=== PATIENT | male | born 1975 | race Caucasian/White ===

== ENCOUNTER 2017-01-01 21:02 | Inpatient (IN) | payer BC ==
--- NOTE | ~2017-01-01 | US85 ---
[facility] A Service of [facility] RADIOLOGY TEXT RESULTS PATIENT: LEE DOMINGUEZ LOCATION: [facility] 310-01 : 74 UNIT #: [id number] AGE: [address]: Steve Copeland MD SEX: M ORDER DR: [id number] [facility] [address] [facility]. [place], [place] [address] [id number] I MR#: [id number] Acc #: [id number] NAME: LEE DOMINGUEZ : 1975 SEX: M STUDY DATE/TIME: 01/01/2017 21:20 UNIT: CEDOF ROOM: 75469 STUDY DESCRIPTION: LE Veins Unilat or Ltd Stdy Attending Physician: Steve Copeland M.D. Ordering Physician: Saravanan Ny D.O. Primary Care Physician: Primary Care Physician No MEDICAL IMAGING REPORT This report is preliminary unless electronic signature is present EXAM Unilateral left lower extremity venous Doppler, 01/01/2017 HISTORY Left leg pain for 3 days. PROCEDURE Corey-scale imaging, color-Doppler flow imaging and Doppler waveform analysis. FINDINGS There is occlusive thrombus in the left superficial femoral vein. There is normal color flow and compressibility and respiratory phasicity and/or augmentation in the common and deep femoral and popliteal veins as well as the below-knee tibial and peroneal veins. The superficial saphenous vein is normal as well. IMPRESSION Positive for acute occlusive deep venous thrombus in the left superficial femoral vein, otherwise negative. Dictated by... Flavio Case M.D. THIS IS AN ELECTRONICALLY VERIFIED REPORT Flavio Case M.D. at 01/03/2017 9:44 AM NADIYA/ming TD: 01/02/2017 01:21 JOB #: [id number] [facility] A Service of [facility] RADIOLOGY TEXT RESULTS PATIENT: LEE DOMINGUEZ LOCATION: [facility] 310-01 : 74 UNIT #: [id number] AGE: [address]: Steve Copeland MD SEX: M ORDER DR: MEDICAL IMAGING REPORT Page 1 of 1 COPY
--- NOTE | ~2017-01-01 | EKG ---
PATIENT: LEE DOMINGUEZ UNIT #: [id number] Ventricular Rate: 103 BPM Atrial Rate: 103 BPM P-R Interval: 130 ms QRS Duration: 80 ms Q-T Interval: 346 ms QTC Calculation(Bezet): 453 ms P [place]: 73 degrees Calculated R [place]: 47 degrees Calculated T [place]: 67 degrees Diagnosis Line: Sinus tachycardia Diagnosis Line: Otherwise normal ECG Diagnosis Line: No previous ECGs available Diagnosis Line: Confirmed by HOWIE MACDONALD MD ([id number]) on 01/01/2017 Diagnosis Line: 10:36:33 PM INTERPRETING MD: RENAE BETANCOURT
--- NOTE | ~2017-01-01 | CR72 ---
[facility] A Service of [facility] RADIOLOGY TEXT RESULTS PATIENT: LEE DOMINGUEZ LOCATION: [facility] : 73 UNIT #: [id number] AGE: [address]: Steve Copeland MD SEX: M ORDER DR: [id number] [facility] [address] [facility]. [place], [place] [address] [id number] I MR#: [id number] Acc #: [id number] NAME: LEE DOMINGUEZ : 1975 SEX: M STUDY DATE/TIME: 01/01/2017 21:42 UNIT: CEDOF ROOM: 07701 STUDY DESCRIPTION: CR Chest Single View Portable Attending Physician: Steve Copeland M.D. Ordering Physician: Saravanan Ny D.O. Primary Care Physician: Primary Care Physician No MEDICAL IMAGING REPORT This report is preliminary unless electronic signature is present EXAM AP portable chest, 01/01/2017 HISTORY 41-year-old male in the ED complaining of chest pain and new onset left leg pain beginning about 4 days ago. The patient is being assessed for DVT and possible PE. TECHNIQUE AP portable upright chest x-ray. TECHNIQUE AP portable upright chest x-ray. FINDINGS Linear scarring or atelectasis left posterior lung base. Lungs are otherwise clear. Heart size and pulmonary vascularity are normal. No visible pulmonary infiltrate or pleural effusion. IMPRESSION Mild linear atelectasis or scarring left lung base. The chest is otherwise negative. Dictated by... Rui Ansari M.D. THIS IS AN ELECTRONICALLY VERIFIED REPORT Rui Ansari M.D. at 01/02/2017 6:00 AM ELEUTERIO/ming TD: 01/02/2017 02:37 [facility] A Service of [facility] RADIOLOGY TEXT RESULTS PATIENT: LEE DOMINGUEZ LOCATION: [facility] : 73 UNIT #: [id number] AGE: [address]: Steve Copeland MD SEX: M ORDER DR: JOB #: [id number] MEDICAL IMAGING REPORT Page 1 of 1 COPY
--- NOTE | ~2017-01-01 | HP ---
Unit #: [id number] #: [id number] Patient: LEE DOMINGUEZ [id number] [address] [place], [place] [address] [id number] MR#: [id number] NAME: LEE DOMINGUEZ. ROOM: 310 Age: 42 Sex: M Admission Date: 01/01/2017 : 1975 Attending Physician: Steve Copeland M.D. Primary Care Physician: No Primary Care Physician HISTORY AND PHYSICAL CHIEF COMPLAINT Lower extremity swelling and shortness of breath. HISTORY OF PRESENT ILLNESS A 42-year-old male with past medical history significant for likely COPD, excessive smoker, who presents with a complaint of left foot pain and was found to have pulmonary embolism and DVT. I am seeing the patient at bedside. He had recent history of travel to [place]. Denies any chest pain, hemoptysis. PHYSICAL EXAMINATION VITAL SIGNS: Temperature 98, pulse 87, respirations 12, blood pressure 130/70. NEUROLOGIC: Awake, alert, oriented. No neuro deficit. HEENT: PERRLA plus 1. NECK: Supple. No JVD. CHEST: Bilateral air entry. Bilateral mild rhonchi. GASTROINTESTINAL: Nontender, soft. Bowel sounds positive. EXTREMITIES: No edema. SKIN: No rash. No ulcer. LYMPHATIC: No lymphadenopathy. DIAGNOSTIC STUDIES Labs and imaging have been reviewed. IMAGING: CT angio showed possible pulmonary embolus. Ultrasound of the leg was positive for DVT. FAMILY HISTORY Negative for blood clots. ASSESSMENT 1. Deep venous thrombosis. 2. Pulmonary embolism. 3. Likely chronic obstructive pulmonary disease. PLAN Plan is to admit the patient. Start anticoagulation. Consult oncology/hematology and control pain. Continue bronchodilator. Patient will be closely monitored. Please see orders for detailed plan. Unit #: [id number] #: [id number] Patient: LEE DOMINGUEZ Dictated by Carie Macario TD: 01/04/2017 17:14 JOB #: [id number] HISTORY AND PHYSICAL Page 1 of 1 X Steve Copeland MD X HISTORY AND PHYSICAL
--- NOTE | ~2017-01-01 | CO ---
Unit #: [id number] #: [id number] Patient: LEE DOMINGUEZ [id number] [address] [place], [place] [address] [id number] I MR#: [id number] NAME: LEE DOMINGUEZ. ROOM: 310 Age: 42 Sex: M Admission Date: 01/01/2017 : 1975 Attending Physician: Steve Copeland M.D. Primary Care Physician: No Primary Care Physician Consultation Date: 01/02/2017 CONSULTATION REPORT REASON FOR CONSULT Left DVT, PE; please evaluate. HISTORY OF PRESENT ILLNESS This is a 42-year-old gentleman who leads a very sedentary life. Takes care of his children at home, so he spends a lot of time watching TV. Had no reason to develop a clot, so it was spontaneous. Left-sided charley horse-type of leg pain, which got worse and started swelling at the thigh. Presented when he was found to have a left-sided DVT plus a low volume pulmonary embolus. We were requested to evaluate. Today on questioning, he states that he has done nothing unusual. The only place he drove was 4 hours going to [place], but that was a week or 2 ago, and the clot is on the left leg and not on right. Currently he has no chest pain, hemoptysis. PAST MEDICAL HISTORY Past history is otherwise negative for other clotting disorders or clotting or bleeding episodes. FAMILY HISTORY Negative for clotting. Both parents and siblings have no clots. 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 He smokes less than a pack a day. No alcohol usage. REVIEW OF SYSTEMS Mainly progressive worsening pain in his left calf, followed by left thigh, but no cough. No hemoptysis. No chest pain. Appetite is fairly good. Weight is stable. Performance was 100%. Otherwise, 6 or 8 systems were within normal limits. PHYSICAL EXAMINATION GENERAL: He appears to be in pain. LYMPHATICS: No supraclavicular, axillary or groin nodes. LUNGS: Clear. CARDIOVASCULAR: Distant S1, S2. ABDOMEN: No palpable liver or spleen. SUPPLY CHAIN TECHNICIAN: Grossly intact. RECTAL: Not done. LOWER EXTREMITIES: Right side is normal. Left side has 1+ edema. Tenderness in the calf. Tenderness in the thigh. No evidence of cellulitis. Unit #: [id number] #: [id number] Patient: LEE DOMINGUEZ DIAGNOSTIC STUDIES IMAGING: Ultrasound is positive for acute occlusive DVT left superficial femoral vein. Otherwise, negative. CT angio of the chest was reviewed. It is positive for pulmonary embolism. Minimal embolus burden in the right lower lobe posterior branch vessel. No other emboli seen. There is a linear 9 mm x 12 mm sized left lung posterior nodular density, which they recommend to be followed in 3-6 months. LABORATORY: Glucose 120, BUN 5, creatinine 0.7, calcium 7.3, albumin 3.3, ALT 63, AST 58, alkaline phosphatase 95. Hemoglobin 16.8, hematocrit 50.2, white count 11.7, platelets 168,000. IMPRESSION This 42-year-old gentleman, with only risk factor of smoking, has spontaneous, unprovoked left DVT with small volume PE with a negative family history. PLAN I told him to immediately quit smoking. We will proceed with a (1) workup, which will include factor V Leiden, prothrombin gene mutation, lupus anticoagulant, anticardiolipin phospholipid antibodies. Will check with the capacity planner if Xarelto is covered under his insurance plan. Then, he will be on Xarelto 15 mg p.o. b.i.d. for 21 days, followed by 20 mg with supper. Will continue minimum of 3-6 months, and I am going to schedule him to see us in the office in 2 weeks to recheck his risk factors. Dictated by... Carie Frank/cuate TD: 01/03/2017 11:33 JOB #: [id number] CONSULTATION REPORT Page 1 of 1 X Siddhartha Ayala MD X CONSULTATION REPORT
--- NOTE | ~2017-01-01 | CT16 ---
[facility] A Service of [facility] RADIOLOGY TEXT RESULTS PATIENT: LEE DOMINGUEZ LOCATION: [facility] 310-01 : [birth year] UNIT #: [id number] AGE: [address]: Steve Copeland MD SEX: M ORDER DR: [id number] [facility] [address] [facility]. [place], [place] [address] [id number] I MR#: [id number] Acc #: [id number] NAME: LEE DOMINGUEZ : 1975 SEX: M STUDY DATE/TIME: 01/01/2017 21:48 UNIT: CEDOF ROOM: 41297 STUDY DESCRIPTION: CT Angio Chest for PE Attending Physician: Steve Copeland M.D. Ordering Physician: Saravanan Ny D.O. Primary Care Physician: Primary Care Physician No MEDICAL IMAGING REPORT This report is preliminary unless electronic signature is present EXAM Chest CT angiogram with contrast, 01/01/2017 PROCEDURE Axial contrast-enhanced chest CT angiogram with three-dimensional reformats. This CT exam was performed with one or more of the following radiation dose reduction techniques: Automatic exposure control, adjustment of mA and/or kV according to patient size, and iterative reconstruction. CLINICAL HISTORY Left leg calf pain and swelling for 3 days, chest pain today. FINDINGS Bolus timing is marginal for evaluation of the pulmonary arteries, but, nonetheless, there is convincing evidence of a peripheral right lower lobe pulmonary embolism. Embolus burden is tiny, as seen here. No other definite emboli are seen. The thoracic aorta is normal in caliber. There is no evidence of aneurysm. Images of the upper abdomen are unremarkable. There is an area of mixed linear and slightly rounded density in the posterior left lung base, but the appearance is typical of an inflammatory or postinflammatory lesion. Nonetheless, it has a vaguely nodular character up to perhaps 10 x 12 mm in size. Recommend a followup chest CT in 3-6 months to confirm resolution. A followup exam can be performed without contrast. There is mild spinal degenerative change and there are some old, healed right rib fractures but no acute bony abnormality is seen. IMPRESSION [facility] A Service of [facility] RADIOLOGY TEXT RESULTS PATIENT: LEE DOMINGUEZ LOCATION: [facility] 310-01 : [birth year] UNIT #: [id number] AGE: [address]: Steve Copeland MD SEX: M ORDER DR: 1. Positive for pulmonary embolism. Minimal embolus burden in a right lower lobe posterior branch vessel. 2. No other emboli are seen, though bolus timing is suboptimal. 3. Normal thoracic aorta. 4. Mostly linear, somewhat nodular density at the posterior left lung base up to 9 x 12 mm in size. Suspect a benign postinflammatory etiology. Recommend followup CT of the chest, which can be performed without contrast in 3-6 months, to confirm the expected benign nature of this finding. 5. The exam is otherwise unremarkable. Dictated by... Flavio Case M.D. THIS IS AN ELECTRONICALLY VERIFIED REPORT Flavio Case M.D. at 01/03/2017 9:44 AM TEV/psc TD: 01/02/2017 02:09 JOB #: [id number] MEDICAL IMAGING REPORT Page 1 of 1 COPY
[2017-01-01 19:41] LABS: POC - CKMB <1.0 ng/mL (0.0-7.9); POC - TROPONIN <0.05 ng/mL (<=0.05)
[2017-01-01 19:50] LABS: BASOPHIL# 0.1 X10e3 (0-0.3); BASOPHIL% 0.5 % (0-2.5); EOSINOPHIL# 0.1 X10e3 (0-0.7); EOSINOPHIL% 0.6 % (0.0-7.0); HEMATOCRIT 50.2 % (38.0-50.0); HEMOGLOBIN 16.8 gm/dL (13.0-16.0); LYMPHOCYTE# 2.1 X10e3 (1.0-3.5); LYMPHOCYTE% 15.3 % (17.0-45.0); MEAN CELL VOLUME 104.3 FL (83-96); MEAN CORPUSCULAR HEMOGLOBIN 34.8 PG (28-34); MEAN CORPUSCULAR HGB CONC 33.4 g/dL (30-36); MEAN PLATELET VOLUME 9.9 FL (6.5-11.5); MONOCYTE# 1.5 X10e3 (0-1.0); MONOCYTE% 10.8 % (3.0-12.0); NEUTROPHIL% 72.8 % (40-75); PLATELET COUNT 168 X10e3 (140-420); RED BLOOD COUNT 4.81 X10e (3.90-5.60); RED CELL DISTRIBUTION WIDTH 14.7 % (11.0-15.5); WHITE BLOOD COUNT 13.7 X10e3 (4.0-10.5)
[2017-01-01 19:54] LABS: DIFF IND NO
[2017-01-01 20:05] LABS: PARTIAL THROMBOPLASTIN TIME 26.3 SECONDS (23.5-31.3); PROTHROMBIN TIME (PATIENT) 10.4 SECONDS (9.6-11.5)
[2017-01-01 20:27] LABS: ALBUMIN SERUM 3.3 g/dL (3.5-5.0); BILIRUBIN, DIRECT 0.5 mg/dL (0.0-0.2); BILIRUBIN,INDIRECT 1.1 mg/dL (0.0-0.9); BILIRUBIN,TOTAL 1.6 mg/dL (0.2-2.0); BUN/CREATININE RATIO 7.14; CALCIUM SERUM 9.3 mg/dL (8.4-10.2); CREATININE SERUM 0.7 mg/dL (0.6-1.4); GLOM FILT RATE Estimated 116.4 mL/min (>60); POTASSIUM 3.4 mmol/L (3.5-5.1); PROTEIN TOTAL SERUM 7.3 g/dL (6.0-8.3)
[2017-01-01 21:52] LABS: POC - CKMB <1.0 ng/mL (0.0-7.9); POC - TROPONIN <0.05 ng/mL (<=0.05)
[2017-01-01] MEDS ORDERED: PROZAC PO (23:22)
[2017-01-03 05:07] LABS: HEMATOCRIT 47.9 % (38.0-50.0); MEAN CELL VOLUME 105.1 FL (83-96); MEAN CORPUSCULAR HGB CONC 33.3 g/dL (30-36); RED BLOOD COUNT 4.55 X10e (3.90-5.60); RED CELL DISTRIBUTION WIDTH 14.5 % (11.0-15.5)
[2017-01-03 06:09] LABS: ALBUMIN SERUM 2.6 g/dL (3.5-5.0); BILIRUBIN,TOTAL 1.6 mg/dL (0.2-2.0); BUN/CREATININE RATIO 8.57; CALCIUM SERUM 8.3 mg/dL (8.4-10.2); CREATININE SERUM 0.7 mg/dL (0.6-1.4); GLOM FILT RATE Estimated 115.6 mL/min (>60); POTASSIUM 3.1 mmol/L (3.5-5.1)
[2017-01-05 04:30] LABS: HEMATOCRIT 47.1 % (38.0-50.0); HEMOGLOBIN 15.7 gm/dL (13.0-16.0); MEAN CELL VOLUME 104.8 FL (83-96); MEAN CORPUSCULAR HEMOGLOBIN 35.1 PG (28-34); MEAN CORPUSCULAR HGB CONC 33.4 g/dL (30-36); MEAN PLATELET VOLUME 8.7 FL (6.5-11.5); RED BLOOD COUNT 4.49 X10e (3.90-5.60); RED CELL DISTRIBUTION WIDTH 14.1 % (11.0-15.5); WHITE BLOOD COUNT 9.2 X10e3 (4.0-10.5)
[2017-01-05 05:10] LABS: ALBUMIN SERUM 2.9 g/dL (3.5-5.0); BILIRUBIN,TOTAL 1.1 mg/dL (0.2-2.0); BUN/CREATININE RATIO 8.75; CALCIUM SERUM 8.4 mg/dL (8.4-10.2); CREATININE SERUM 0.8 mg/dL (0.6-1.4); GLOM FILT RATE Estimated 109.5 mL/min (>60); POTASSIUM 3.1 mmol/L (3.5-5.1); PROTEIN TOTAL SERUM 6.7 g/dL (6.0-8.3)
[2017-01-05] MEDS ORDERED: XARELTO15 MG PO (13:00)
[2017-01-05] MEDS ORDERED: HYDROCODON-ACE1 EAC7 PO (13:01)
[2017-01-06 14:41] LABS: CARDIOLIPIN IGG (LUPUS) <14 GPL (<=14); CARDIOLIPIN IGM (LUPUS) <12 MPL (<=12); DRVVT MIX INTERP (LUPUS) Not Indicated (()); HEXAGONAL PHASE CONF (LUPUS) Positive (Negative); IMM PTT LA MIX NOT CORRECTED (()); INR LUPUS 1.1 (()); PROTROMBIN TIME LUPUS 11.9 sec (9.0-11.5); PT (LA MIX STUDY) 11.9 sec (<=11.5); PTT MIX INTERP Has been added (()); PTT-LA 58 sec (<=40); PTT-LA SCREEN (LUPUS) 58 sec (<=40); THROMBIN TIME LUPUS 21 sec (13-19); dRVVT SCREEN (LUPUS) 39 sec (<=45)
== END 2017-01-05 16:05 | disposition home or self-care (01) | DRG 176 ==
LOC: CED 21:02 → CEDOF 23:18 → C3A PCU 01-02 07:43
PROVIDERS: Emergency Medicine; Internal Medicine
PROC: B30SZZZ Plain Radiography of Right Pulmonary Artery (ICD-10-PCS; principal; 2017-01-01)
PROC: B30TZZZ Plain Radiography of Left Pulmonary Artery (ICD-10-PCS; 2017-01-01)
DX: I26.99 Other pulmonary embolism without acute cor pulmonale (principal); I82.402 Acute embolism and thrombosis of unspecified deep veins of left lower extremity; J44.9 Chronic obstructive pulmonary disease, unspecified; F17.210 Nicotine dependence, cigarettes, uncomplicated
CPT/HCPCS: 36415; 71010; 71275; 80048; 80053; 80076; 81240; 81241; 82553; 82947; 84484; 85025; 85027; 85379; 85598; 85610; 85613; 85670; 85730; 86146; 86147; 86148; 93005; 93971; 99285; J1650; J2270; Q9967